=== PATIENT | female | born 1970 | race Caucasian/White ===

== ENCOUNTER 2022-08-18 11:40 | Emergency (ER) | payer OTHER ==
[2022-08-18 12:23] VITALS: BP 158/93; PULSE 80; RESP 20; TEMP 98.2; BMI 25.7
== END 2022-08-18 16:00 | disposition home or self-care (01) ==
LOC: JERFT 11:40
DX: H00.014 Hordeolum externum left upper eyelid (principal)
CPT/HCPCS: 70450-TC; 70480-TC; 76512; 99285-25